=== PATIENT | female | born 1990 | race Caucasian/White ===

== ENCOUNTER 2019-02-18 11:47 | Outpatient (CLI) | payer BC, SELFPAY ==
[2019-02-18 13:10] LABS: Anion Gap 13.8 mmol/L (3-11); BUN 8 mg/dL (7-18); CO2 22.2 mmol/L (21.0-32.0); CREATININE 0.78 mg/dL (0.55-1.02); Calcium 8.7 mg/dL (8.5-10.1); Calculated LDL 153 mg/dL; Chloride 105 mmol/L (98-107); Cholesterol 242 mg/dL (50-200); Glucose 76 mg/dL (70-100); HDL Cholesterol 51 mg/dL (40-60); Sodium 141 mmol/L (136-145); TSH 1.14 uIU/mL (0.36-3.74); Triglyceride 191 mg/dL (30-150)
[2019-02-18 13:29] LABS: FREE T4 0.98 ng/dL (0.76-1.46)
== END 2019-02-18 12:07 ==
PROVIDERS: PCP Nurse Practitioner Family; Visit Provider Nurse Practitioner Family
DX: Z00.00 Encounter for general adult medical examination without abnormal findings (principal); Z13.29 Encounter for screening for other suspected endocrine disorder; Z13.220 Encounter for screening for lipoid disorders; Z13.228 Encounter for screening for other metabolic disorders
CPT/HCPCS: 36415; 80048; 80061; 83721; 84439; 84443

== ENCOUNTER 2019-02-18 13:15 | Outpatient (REF) | payer BC, SELFPAY ==
--- NOTE | 2019-02-18 11:20 | PAPFT_PTH ---
PATIENT: Norma Meeks LOC: [facility] U#:[id number] AGE/SX: 28/F ROOM: RE02/18/[address]: SHAYY Wilson : 1990 BED: DIS: 02/18/2019 SPEC #: [id number] RECD: 02/21/19 13:00 STATUS: CARMELITA ESCOBAR #: [id number] GORGE: 02/18/19 11:[address]: Katja Izquierdo DEPT: [facility] Cytology RECD BY: Luz Washington Tissues: 1 - CX/ENDOCX FOR PAP SMEARS Procedures: PAP THIN PREP/[facility] Screening HPV DNA PROBE Comments: [id number]
== END 2019-02-18 13:35 ==
LOC: LBN 13:15
PROVIDERS: PCP Nurse Practitioner Family; Visit Provider Nurse Practitioner Family
DX: Z12.4 Encounter for screening for malignant neoplasm of cervix (principal); Z11.51 Encounter for screening for human papillomavirus (HPV)
CPT/HCPCS: 88142; 87624

== ENCOUNTER 2023-08-27 04:45 | Outpatient (CLI) | payer OTHER, SELFPAY ==
[2023-08-27 08:12] LABS: HCT 43.2 % (36.0-46.0); MCH 31.8 pg (27.0-33.0); MCHC 34.7 % (32.0-36.0); MCV 92 fL (80-95); MPV 8.9 fL (8.0-11.0); Platelet Count 367 10^3/uL (130-400); RBC 4.72 10^6/uL (3.93-5.22); RDW 13.2 % (11.7-14.6); RDW-SD 44.6 fL; WBC 10.13 10^3/uL (4.4-10.8)
[2023-08-27 08:15] LABS: Hemoglobin A1C 5.3 % (<5.7)
[2023-08-27 08:31] LABS: Anion Gap 9.8 mmol/L (3-11); BUN 12 mg/dL (7-18); CO2 26.2 mmol/L (21.0-32.0); CREATININE 0.9 mg/dL (0.55-1.02); Calcium 9.2 mg/dL (8.5-10.1); Calculated LDL 134 mg/dL (<100); Chloride 106 mmol/L (98-107); Cholesterol 207 mg/dL (<200); Glucose 102 mg/dL (74-106); HDL Cholesterol 53 mg/dL (40-60); Potassium 3.8 mmol/L (3.5-5.1); Sodium 142 mmol/L (136-145); Triglyceride 100 mg/dL (<150)
== END 2023-08-27 04:46 | disposition home or self-care (01) ==
LOC: LBO 04:45
PROVIDERS: PCP Nurse Practitioner Family; Visit Provider Nurse Practitioner Family
DX: Z00.00 Encounter for general adult medical examination without abnormal findings (principal)
CPT/HCPCS: 36415; 80048; 80061; 85027; 83036; 84443

== ENCOUNTER 2024-06-10 11:00 | Outpatient (REF) | payer OTHER, SELFPAY ==
--- NOTE | 2024-06-10 09:45 | PAPFT_PTH ---
PATIENT: Norma Meeks LOC: [facility] U#:[id number] AGE/SX: 34/F ROOM: RE06/10/[address]: SHAYY Wilson : 1990 BED: DIS: 06/10/2024 SPEC #: [id number] RECD: 06/13/24 13:18 STATUS: CARMELITA REQ #: [id number] GORGE: 06/10/24 09:[address]: Katja Izquierdo [facility] Cytology RECD BY: Luz Washington Tissues: 1 - CX/ENDOCX FOR PAP SMEARS Procedures: PAP THIN PREP/[facility] Screening HPV DNA PROBE Comments: [id number] (HPV 16 & 18/45)
== END 2024-06-10 11:01 | disposition home or self-care (01) ==
LOC: LBN 11:00
PROVIDERS: PCP Nurse Practitioner Family; Visit Provider Nurse Practitioner Family
DX: Z23 Encounter for immunization (principal); Z00.00 Encounter for general adult medical examination without abnormal findings; N93.9 Abnormal uterine and vaginal bleeding, unspecified; F17.210 Nicotine dependence, cigarettes, uncomplicated
CPT/HCPCS: 88142; 87624